=== PATIENT | male | born 2000 | race Caucasian/White ===

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

== ENCOUNTER 2018-02-20 23:49 | Inpatient (IN) | payer OTHER ==
[2018-02-21 01:27] LABS: HEMATOCRIT 44.4 % (42.0-52.0); MEAN CORPUSCULAR HEMOGLOBIN 29.1 pg (27.0-33.0); MEAN CORPUSCULAR HGB CONC 33.8 g/dl (32.0-36.5); PLATELET COUNT, AUTOMATED 308 10^3/uL (150-450); RED BLOOD COUNT 5.16 10^6/uL (4.30-6.10); RED CELL DISTRIBUTION WIDTH 12.7 % (11.5-14.5); WHITE BLOOD COUNT 8.1 10^3/uL (4.0-10.0)
[2018-02-21 02:07] LABS: ACETAMINOPHEN LEVEL < 2.0 UG/ML (10.0-30.0); ALBUMIN 3.7 GM/DL (3.2-5.2); ALBUMIN/GLOBULIN RATIO 0.88 (1.00-1.93); ALKALINE PHOSPHATASE 120 U/L (45-117); ALT/SGPT 52 U/L (12-78); AMPHETAMINES LEVEL URINE NEGATIVE (NEGATIVE); ANION GAP 11 MEQ/L (8-16); AST/SGOT 40 U/L (7-37); BARBITURATES URINE NEGATIVE (NEGATIVE); BENZODIAZEPINES URINE NEGATIVE (NEGATIVE); BILIRUBIN,DIRECT < 0.1 MG/DL (0.0-0.2); BILIRUBIN,TOTAL 0.2 MG/DL (0.2-1.0); BLOOD UREA NITROGEN 11 MG/DL (7-18); CALCIUM LEVEL 7.8 MG/DL (8.5-10.1); CANNABINOIDS URINE POSITIVE (NEGATIVE); CARBON DIOXIDE LEVEL 26 MEQ/L (21-32); CHLORIDE LEVEL 107 MEQ/L (98-107); COCAINE METABOLITE URINE NEGATIVE (NEGATIVE); CREATININE FOR GFR 1.05 MG/DL (0.70-1.30); GLUCOSE, FASTING 107 MG/DL (70-100); METHADONE URINE NEGATIVE (NEGATIVE); OPIATES URINE NEGATIVE (NEGATIVE); PHENCYCLIDINE URINE NEGATIVE (NEGATIVE); SALICYLATE LEVEL < 1.7 MG/DL (5.0-30.0); SODIUM LEVEL 144 MEQ/L (136-145); THYROID STIMULATING HORMONE 0.306 uIU/ML (0.463-3.98); TOTAL PROTEIN 7.9 GM/DL (6.4-8.2)
[2018-02-21] MEDS: ADDERALL 5 MG TAB PO ×2 (09:19→14:30)
[2018-02-21] MEDS: NICOTINE 21MG/24HR 1 EA TRANSDERMAL TD (10:41)
[2018-02-21] MEDS: PROPRANOLOL 10 MG TAB PO ×2 (14:00→22:35)
[2018-02-21] MEDS ORDERED: MAALOX 30 ML SUSP *UDC PO (14:30)
[2018-02-21] MEDS ORDERED: MOM 30ML SUSPENSION UDC PO (14:30)
[2018-02-21] MEDS ORDERED: PROPRANOLOL 10 MG TAB PO (16:00)
[2018-02-21] MEDS: MULTIVITAMINS/MINERALS THERAP 1 TAB PO (17:58)
[2018-02-21] MEDS: THIAMINE 100 MG TAB PO ×2 (17:58→20:18)
[2018-02-21] MEDS: FOLIC ACID 1 MG TAB PO (17:58)
[2018-02-21] MEDS: traZODone 50 MG TAB PO (20:18)
[2018-02-22] MEDS ORDERED: ADDERALL 5 MG TAB PO (08:00)
[2018-02-22] MEDS: NICOTINE 21MG/24HR 1 EA TRANSDERMAL TD ×2 (09:00→14:08)
[2018-02-22] MEDS: FOLIC ACID 1 MG TAB PO (09:00)
[2018-02-22] MEDS: THIAMINE 100 MG TAB PO ×2 (09:00→21:25)
[2018-02-22] MEDS: MULTIVITAMINS/MINERALS THERAP 1 TAB PO (09:00)
[2018-02-22] MEDS: INFLUENZA QUADRIVALENT PF VACCINE 0.5ML SYRINGE (90686) IM (09:42)
[2018-02-22] MEDS: PROPRANOLOL 10 MG TAB PO (11:58)
[2018-02-22] MEDS: FLUoxetine 20 MG CAP PO (13:40)
[2018-02-22] MEDS: ATOMOXETINE HCL 40 MG CAP (STRATTERA) PO (13:40)
[2018-02-22] MEDS: OLANZapine ORAL DISINTEGRATING TAB 5MG PO ×2 (15:42→21:25)
[2018-02-22] MEDS ORDERED: OLANZapine ORAL DISINTEGRATING TAB 5MG PO (16:30)
[2018-02-22] MEDS: traZODone 50 MG TAB PO (21:30)
[2018-02-22] MEDS: LORazepam 2 MG TAB PO (21:33)
[2018-02-23] MEDS: FOLIC ACID 1 MG TAB PO (09:00)
[2018-02-23] MEDS: THIAMINE 100 MG TAB PO ×2 (09:00→21:00)
[2018-02-23] MEDS: OLANZapine ORAL DISINTEGRATING TAB 5MG PO ×4 (09:00→21:00)
[2018-02-23] MEDS: NICOTINE 21MG/24HR 1 EA TRANSDERMAL TD (09:00)
[2018-02-23] MEDS: ATOMOXETINE HCL 40 MG CAP (STRATTERA) PO (09:00)
[2018-02-23] MEDS: MULTIVITAMINS/MINERALS THERAP 1 TAB PO (09:00)
[2018-02-23] MEDS: FLUoxetine 20 MG CAP PO (09:00)
[2018-02-23 10:23] LABS: HEPATITIS C VIRUS ABY INDEX < 0.0 INDEX (<0.8)
[2018-02-23 10:23] LABS: HEPATITIS A ANTIBODY IGM NEGATIVE (NEGATIVE); HEPATITIS B CORE ANTIBODY IGM NEGATIVE (NEGATIVE); HEPATITIS B SURFACE ANTIGEN NEGATIVE (NEGATIVE)
[2018-02-24] MEDS: FOLIC ACID 1 MG TAB PO (09:00)
[2018-02-24] MEDS: FLUoxetine 20 MG CAP PO (09:00)
[2018-02-24] MEDS: NICOTINE 21MG/24HR 1 EA TRANSDERMAL TD (09:00)
[2018-02-24] MEDS: OLANZapine ORAL DISINTEGRATING TAB 5MG PO ×5 (09:00→21:53)
[2018-02-24] MEDS: MULTIVITAMINS/MINERALS THERAP 1 TAB PO (09:00)
[2018-02-24] MEDS ORDERED: OLANZapine ORAL DISINTEGRATING TAB 5MG PO (19:45)
[2018-02-24] MEDS: traZODone 50 MG TAB PO (21:53)
[2018-02-25] MEDS: FOLIC ACID 1 MG TAB PO (09:11)
[2018-02-25] MEDS: FLUoxetine 20 MG CAP PO (09:11)
[2018-02-25] MEDS: MULTIVITAMINS/MINERALS THERAP 1 TAB PO (09:11)
[2018-02-25] MEDS: OLANZapine ORAL DISINTEGRATING TAB 5MG PO ×2 (09:12→15:52)
[2018-02-25] MEDS: NICOTINE 21MG/24HR 1 EA TRANSDERMAL TD (09:13)
[2018-02-25] MEDS: QUEtiapine FUMARATE 50 MG TAB PO ×2 (16:33→21:14)
[2018-02-25] MEDS: hydrOXYzine 50 MG TAB PO (16:33)
[2018-02-25] MEDS: LORazepam 2 MG TAB PO (21:29)
[2018-02-25] MEDS: traZODone 50 MG TAB PO (22:03)
[2018-02-26] MEDS: NICOTINE 21MG/24HR 1 EA TRANSDERMAL TD (08:47)
[2018-02-26] MEDS: FOLIC ACID 1 MG TAB PO (08:47)
[2018-02-26] MEDS: FLUoxetine 20 MG CAP PO (08:47)
[2018-02-26] MEDS: hydrOXYzine 50 MG TAB PO ×3 (08:47→21:25)
[2018-02-26] MEDS: QUEtiapine FUMARATE 50 MG TAB PO ×3 (08:47→20:19)
[2018-02-26] MEDS: MULTIVITAMINS/MINERALS THERAP 1 TAB PO (08:47)
[2018-02-26] MEDS: SERTRALINE HCL 50 MG TAB PO (08:47)
[2018-02-26] MEDS: QUEtiapine FUMARATE 100 MG TAB PO (16:38)
[2018-02-26] MEDS: traZODone 50 MG TAB PO (20:19)
[2018-02-26] MEDS: ACETAMINOPHEN TAB 650MG DOSE (2X325MG) PO (21:27)
[2018-02-27] MEDS: OLANZapine 5 MG TAB PO (00:27)
[2018-02-27] MEDS: PROPRANOLOL 10 MG TAB PO ×2 (00:27→14:23)
[2018-02-27] MEDS: ACETAMINOPHEN TAB 650MG DOSE (2X325MG) PO ×2 (06:46→17:28)
[2018-02-27] MEDS: FOLIC ACID 1 MG TAB PO (09:35)
[2018-02-27] MEDS: QUEtiapine FUMARATE 50 MG TAB PO ×3 (09:36→20:06)
[2018-02-27] MEDS: NICOTINE 21MG/24HR 1 EA TRANSDERMAL TD (09:36)
[2018-02-27] MEDS: FLUoxetine 20 MG CAP PO (09:36)
[2018-02-27] MEDS: MULTIVITAMINS/MINERALS THERAP 1 TAB PO (09:36)
[2018-02-27] MEDS: SERTRALINE HCL 50 MG TAB PO (09:36)
[2018-02-27] MEDS: hydrOXYzine 50 MG TAB PO ×2 (14:23→20:57)
[2018-02-27] MEDS: traZODone 50 MG TAB PO (20:07)
[2018-02-28] MEDS: PROPRANOLOL 10 MG TAB PO (01:12)
[2018-02-28] MEDS: hydrOXYzine 50 MG TAB PO (04:30)
[2018-02-28] MEDS: SERTRALINE HCL 50 MG TAB PO (08:19)
[2018-02-28] MEDS: MULTIVITAMINS/MINERALS THERAP 1 TAB PO (08:19)
[2018-02-28] MEDS: QUEtiapine FUMARATE 50 MG TAB PO (08:19)
[2018-02-28] MEDS: FOLIC ACID 1 MG TAB PO (08:19)
[2018-02-28] MEDS: NICOTINE 21MG/24HR 1 EA TRANSDERMAL TD (08:19)
[2018-02-28] MEDS: FLUoxetine 20 MG CAP PO (08:19)
== END 2018-02-28 10:30 | disposition home or self-care (01) | DRG 880 ==
LOC: M PSY 02-23 14:13 → M ED 23:49 → M ED INP 02-21 14:16 → M PSY 02-21 16:50
DX: F41.1 Generalized anxiety disorder (principal); F90.9 Attention-deficit hyperactivity disorder, unspecified type; Z91.5 Personal history of self-harm; Z81.1 Family history of alcohol abuse and dependence; F17.210 Nicotine dependence, cigarettes, uncomplicated; Z79.899 Other long term (current) drug therapy; Z62.811 Personal history of psychological abuse in childhood; F10.10 Alcohol abuse, uncomplicated; F19.10 Other psychoactive substance abuse, uncomplicated; Z76.5 Malingerer [conscious simulation]